=== PATIENT | male | born 1945 | race Caucasian/White ===

== ENCOUNTER 2021-08-13 15:34 | Emergency (ER) | payer MEDICARE, OTHER ==
[2021-08-13 16:26] LABS: BASOPHIL 0.3 % (0-2); EOSINOPHIL 0.8 % (0-7); HCT 48.8 % (42.0-52.0); HGB 16.1 g/dl (13.2-18.0); LYMPHOCYTE 11.3 % (15-48); MCH 30.6 pg (25.0-31.0); MCV 92.6 fL (78.0-100.0); MONOCYTE 9.1 % (0-12); MPV 9.5 fL (6.0-9.5); NEUTROPHIL 78.1 % (41-80); NRBC 0; PLT 254 K/uL (150-400); RBC 5.27 M/uL (4.70-6.00); RDW 12.2 % (11.5-14.0); WBC 14.5 K/uL (4.0-10.5)
[2021-08-13 16:39] LABS: ALBUMIN 3.9 g/dL (3.4-5.0); BILIRUBIN - TOTAL 0.6 mg/dL (0.2-1.0); BUN/CREAT RATIO (CALC) 26.9 RATIO; CREATININE 0.67 mg/dL (0.67-1.17); GLOBULIN (CALCULATION) 3.2 g/dL; POTASSIUM 4.5 mmol/L (3.5-5.1); TOTAL PROTEIN 7.1 g/dL (6.4-8.2)
[2021-08-13] MEDS ORDERED: NORCO 5-325 TA1 EACH PO (18:36)
== END 2021-08-13 18:50 | disposition left against medical advice (07) ==
LOC: FER 15:34
PROVIDERS: Emergency Medicine
DX: S40.012A Contusion of left shoulder, initial encounter (principal); S00.03XA Contusion of scalp, initial encounter; J96.10 Chronic respiratory failure, unspecified whether with hypoxia or hypercapnia; I10 Essential (primary) hypertension; E11.9 Type 2 diabetes mellitus without complications; E78.5 Hyperlipidemia, unspecified; Z79.84 Long term (current) use of oral hypoglycemic drugs; Z79.899 Other long term (current) drug therapy; Z28.310 Unvaccinated for COVID-19; W17.89XA Other fall from one level to another, initial encounter; Y92.009 Unspecified place in unspecified non-institutional (private) residence as the place of occurrence of the external cause; Z20.822 Contact with and (suspected) exposure to COVID-19; Z53.29 Procedure and treatment not carried out because of patient's decision for other reasons
CPT/HCPCS: 36415; 36600; 70450; 71045; 72125; 72128; 72131; 73030; 80053; 82803; 83880; 84145; 85025; 93005; J2270; U0002